=== PATIENT | female | born 1985 | race Caucasian/White ===

== ENCOUNTER 2016-08-12 13:40 | Inpatient (IN) | payer OTHER ==
[~2016-08-12] VITALS: Ht 161.3 cm; Wt 77.2 kg
[~2016-08-12 13:40] MED LIST: PRENAT PO
[2016-08-12 14:00] VITALS: BP 162/92; PULSE 96; RESP 20; Ht 161.3 cm; Wt 77.2 kg
[2016-08-12] MEDS ORDERED: AMPICILLIN 2 GM/NS (PMX) 100 ML IV ONE (14:30)
[2016-08-12] MEDS ORDERED: CARBOPROST 250 MCG INJ IM PRN (14:30)
[2016-08-12] MEDS ORDERED: IBUPROFEN 600 MG TAB PO PRN (14:30)
[2016-08-12] MEDS ORDERED: BUTORPHANOL 2 MG INJ IV PRN ×2 (14:30)
[2016-08-12] MEDS ORDERED: OXYTOCIN 30 UNITS/LR 500 ML IV PRN (14:30)
[2016-08-12] MEDS ORDERED: MISOPROSTOL 200 MCG TAB PR PRN (14:30)
[2016-08-12] MEDS ORDERED: NACL 0.9% 3 ML SYG IV SCH (14:30)
[2016-08-12] MEDS ORDERED: LIDOCAINE 1% (MPF) 30 ML INJ INJ PRN (14:30)
[2016-08-12] MEDS ORDERED: OXYTOCIN 30 UNITS/LR 500 ML IV SCH ×2 (14:30)
[2016-08-12] MEDS ORDERED: OXYCODONE/ACETAMINOPHEN (5/325) TAB PO PRN (14:30)
[2016-08-12] MEDS ORDERED: OXYCODONE/ASPIRIN (4.88/325) TAB PO PRN (14:30)
[2016-08-12] MEDS ORDERED: NA PHOSPHATE/BIPHOS 133 ML ENEMA PR ONE (14:30)
[2016-08-12] MEDS ORDERED: ACETAMINOPHEN/CODEINE #3 TAB PO PRN (14:30)
[2016-08-12 14:52] LABS: ADD SCAN DIFF NO
[2016-08-12 14:54] LABS: BASOPHILS % 0.4 % (0.0-2.0); EOSINOPHILS % 0.2 % (0.0-7.0); HEMATOCRIT 38.6 % (37.0-47.0); HEMOGLOBIN 12.5 g/dl (12.0-16.0); LYMPHOCYTES # 2.3 10^3/ul (0.8-2.9); LYMPHOCYTES % 22.7 % (15.0-51.0); MEAN CORPUSCULAR HEMOGLOBIN 24.7 pg (29.0-33.0); MEAN CORPUSCULAR HGB CONC 32.4 g/dl (32.0-37.0); MEAN CORPUSCULAR VOLUME 76.3 fl (82.0-101.0); MEAN PLATELET VOLUME 10.5 fl (7.4-10.4); MONOCYTE # 0.6 10^3/ul (0.3-0.9); MONOCYTES % 5.6 % (0.0-11.0); NEUTROPHILS % 70.6 % (39.0-77.0); PLATELET COUNT 267 10^3/UL (140-415); RED BLOOD COUNT 5.06 10^6/ul (4.20-5.40); RED CELL DISTRIBUTION WIDTH 19.1 % (11.5-14.5); WHITE BLOOD COUNT 9.9 10^3/ul (4.8-10.8)
[2016-08-12 15:06] LABS: INR 0.98
[2016-08-12 15:07] LABS: ALBUMIN 3.6 g/dl (3.3-4.9); PARTIAL THROMBOPLASTIN TIME 29.2 Sec (25.0-35.0)
[2016-08-12 15:08] LABS: POTASSIUM 3.4 mmol/L (3.5-5.1)
[2016-08-12 15:10] LABS: ALBUMIN/GLOBULIN RATIO 0.94; BILIRUBIN,INDIRECT 0.2 mg/dl (0-1.1); BILIRUBIN,TOTAL 0.2 mg/dl (0.2-1.3); CREATININE 0.45 mg/dl (0.44-1.00); TOTAL PROTEIN 7.4 g/dl (6.1-8.1)
[2016-08-12 15:11] LABS: ADD UMIC YES; CALCIUM 9.6 mg/dl (8.4-10.2); URINE BILIRUBIN (Dip) NEGATIVE (NEGATIVE); URINE BLOOD (Dip) NEGATIVE (NEGATIVE); URINE COLOR LT. YELLOW (YELLOW); URINE GLUCOSE (Dip) NEGATIVE (NEGATIVE); URINE KETONES (Dip) 40 (NEGATIVE); URINE LEUKOCYTE ESTERASE (Dip) TRACE (NEGATIVE); URINE NITRITE (Dip) NEGATIVE (NEGATIVE); URINE TOTAL PROTEIN (Dip) NEGATIVE (NEGATIVE); URINE UROBILINOGEN (Dip) 0.2 E.U./dL (0.1-1.0)
[2016-08-12 15:33] LABS: SQUAMOUS EPITHELIAL CELL,UR MODERATE; URINE RBCS 0-2 /HPF (0)
[2016-08-12 15:34] LABS: BACTERIA,URINE FEW
[2016-08-12 15:40] LABS: ALBUMIN 3.7 g/dl (3.3-4.9)
[2016-08-12 15:43] LABS: BILIRUBIN,INDIRECT 0.2 mg/dl (0-1.1); BILIRUBIN,TOTAL 0.2 mg/dl (0.2-1.3); TOTAL PROTEIN 7.5 g/dl (6.1-8.1)
[2016-08-12] MEDS: LACTATED RINGER'S 1,000 ML IV SCH ×2 (15:50→21:14)
--- NOTE | 2016-08-12 18:23 | HP ---
Date/Time of Note Date/Time of Note DATE: 08/12/16 TIME: 18:18 OB - History Hx of Present Free Text/Dictation sent in from clinic at 40 + weeks for F/U Last Menstrual Period: Nov 05, 2015 Estimated Due Date: Aug 11, 2016 : 3 Para: 2 Care: Limited Care Obstetrical Complications: Other (abnormal 2nd trimester screen ) Past Family/Social History * Past Medical, Surgical, Family and Obstetric Histories reviewed from chart. Blood Type: A+ OB Admission Exam Vital Signs Vital Signs Vital Signs Date Time Temp Pulse Resp B/P Pulse Ox O2 Delivery O2 Flow Rate FiO2 08/12/16 14:00 98.2 96 20 162/92 Room Air Physical Exam HEENT: WNL Heart: Rhythm Normal Lungs: Clear, Equal Abdomen: WNL Extremities: Normal Reflexes: Normal Cervical Dilatation: 5cm Effacement: 50% Station: -3 Membranes: Intact Contractions on Admission: 6-10 Minutes Apart Date/Time Contractions Began: ? Frequency of Contractions: ? Duration: ? Intensity: Mild Last 72 hours Lab Results CBC & BMP 08/12/16 14:15 Liver Function Test 08/12/16 14:15 Alanine Aminotransferase (ALT/SGPT) 26 Albumin 3.6 Alkaline Phosphatase 181 H Aspartate Amino Transf (AST/SGOT) 26 Direct Bilirubin 0.00 Total Protein 7.4 OB Assessment/Plan Reason for admission: induction of labor Other Assessment: post term Induction Method: per Pitocin Protocol MONIKA CAMPOS MD Aug 12, 2016 18:23
[2016-08-12] MEDS: AMPICILLIN 1 GM/NS (PMX) 50 ML IV SCH ×2 (19:28→22:39)
[2016-08-12] MEDS ORDERED: LACTATED RINGER'S 1,000 ML IV PRN (20:00)
[2016-08-13] MEDS: AMPICILLIN 1 GM/NS (PMX) 50 ML IV SCH (02:25)
[2016-08-13] MEDS: OXYTOCIN 30 UNITS/LR 500 ML IV SCH ×4 (03:47→07:47)
--- NOTE | 2016-08-13 03:53 | LDN ---
Date/Time of Note Date/Time of Note DATE: 08/13/16 TIME: 03:50 Delivery Summary uncomplicated of live female . shoulders delivered atraumatically, followed by body. No nuchal cord. No perineal lacerations; placenta delivered spontaneously. EBL 300mL Weeks of Gestation term Placenta Delivered: Spontaneously Meconium: none Episiotomy: No Anesthesia type: None Estimated blood loss: 300 Sponge & Needle done & correct: Yes All needle counts correct: Yes Any foreign bodies felt in the: No Problems: Mother & Baby Disposition Disposition Mom & Baby to Maternity; Good: Yes Baby to NICU: No JULIET ALCARAZ MD Aug 13, 2016 03:53
[2016-08-13] MEDS ORDERED: MISOPROSTOL 200 MCG TAB PR PRN (04:00)
[2016-08-13] MEDS ORDERED: ACETAMINOPHEN/CODEINE #3 TAB PO PRN ×2 (04:00)
[2016-08-13] MEDS ORDERED: CARBOPROST 250 MCG INJ IM PRN (04:00)
[2016-08-13] MEDS ORDERED: DIPHENHYDRAMINE 25 MG CAP PO PRN (04:00)
[2016-08-13] MEDS ORDERED: ZOLPIDEM 5 MG TAB PO PRN (04:00)
[2016-08-13] MEDS ORDERED: OXYTOCIN 30 UNITS/LR 500 ML IV PRN (04:00)
[2016-08-13] MEDS ORDERED: LANOLIN 7 GM TUBE TOP PRN (04:00)
[2016-08-13] MEDS: IBUPROFEN 600 MG TAB PO SCH ×4 (06:00→23:49)
[2016-08-13] MEDS: LACTATED RINGER'S 1,000 ML IV SCH ×2 (06:25→14:25)
[2016-08-13 06:45] VITALS: BP 160/72; PULSE 78; RESP 20
[2016-08-13 07:20] VITALS: BP 117/61; PULSE 87; RESP 20
[2016-08-13 08:00] VITALS: BP 130/72; RESP 18
[2016-08-13] MEDS: SENNA/DOCUSATE NA (8.6MG/50MG) TAB PO SCH ×2 (09:09→21:15)
[2016-08-13 10:07] LABS: ADD SCAN DIFF NO
[2016-08-13 10:14] LABS: BASOPHILS % 0.3 % (0.0-2.0); EOSINOPHILS % 0.1 % (0.0-7.0); HEMATOCRIT 34.2 % (37.0-47.0); HEMOGLOBIN 11.3 g/dl (12.0-16.0); LYMPHOCYTES # 2.2 10^3/ul (0.8-2.9); LYMPHOCYTES % 16.5 % (15.0-51.0); MEAN CORPUSCULAR HEMOGLOBIN 25.7 pg (29.0-33.0); MEAN CORPUSCULAR VOLUME 77.9 fl (82.0-101.0); MEAN PLATELET VOLUME 10.3 fl (7.4-10.4); MONOCYTE # 0.6 10^3/ul (0.3-0.9); MONOCYTES % 4.3 % (0.0-11.0); NEUTROPHIL # 10.4 10^3/ul (1.6-7.5); NEUTROPHILS % 78.3 % (39.0-77.0); PLATELET COUNT 241 10^3/UL (140-415); RED BLOOD COUNT 4.39 10^6/ul (4.20-5.40); RED CELL DISTRIBUTION WIDTH 18.3 % (11.5-14.5); WHITE BLOOD COUNT 13.3 10^3/ul (4.8-10.8)
[2016-08-13 12:00] VITALS: BP 108/57; PULSE 99
[2016-08-13 16:00] VITALS: BP 121/60; PULSE 94; RESP 18
[2016-08-13 19:30] VITALS: BP 129/67; PULSE 79; RESP 18
[2016-08-14 03:56] VITALS: BP 115/58; PULSE 75; RESP 18
[2016-08-14] MEDS: IBUPROFEN 600 MG TAB PO SCH ×3 (05:44→17:55)
[2016-08-14 08:06] LABS: ADD SCAN DIFF NO
[2016-08-14 08:09] LABS: BASOPHILS % 0.6 % (0.0-2.0); EOSINOPHILS # 0.1 10^3/ul (0.0-0.5); HEMATOCRIT 29.3 % (37.0-47.0); HEMOGLOBIN 9.2 g/dl (12.0-16.0); LYMPHOCYTES # 2.6 10^3/ul (0.8-2.9); LYMPHOCYTES % 40.2 % (15.0-51.0); MEAN CORPUSCULAR HEMOGLOBIN 24.6 pg (29.0-33.0); MEAN CORPUSCULAR HGB CONC 31.4 g/dl (32.0-37.0); MEAN CORPUSCULAR VOLUME 78.3 fl (82.0-101.0); MEAN PLATELET VOLUME 10.5 fl (7.4-10.4); MONOCYTE # 0.5 10^3/ul (0.3-0.9); MONOCYTES % 7.6 % (0.0-11.0); NEUTROPHIL # 3.2 10^3/ul (1.6-7.5); NEUTROPHILS % 49.1 % (39.0-77.0); PLATELET COUNT 201 10^3/UL (140-415); RED BLOOD COUNT 3.74 10^6/ul (4.20-5.40); RED CELL DISTRIBUTION WIDTH 18.7 % (11.5-14.5); WHITE BLOOD COUNT 6.5 10^3/ul (4.8-10.8)
[2016-08-14 08:20] VITALS: BP 127/71; PULSE 73; RESP 18
[2016-08-14] MEDS: SENNA/DOCUSATE NA (8.6MG/50MG) TAB PO SCH ×2 (09:58→21:57)
--- NOTE | 2016-08-14 13:29 | DS ---
Date/Time of Note Date/Time of Note home next day DATE: 08/14/16 TIME: 13:28 Obstetrical Discharge Record Final Diagnosis Final Diagnosis: Term delivered Other Final Diagnosis S/P vaginal delivery Vaginal Delivery Obstetrical Delivery: Spontaneous Complications Augmentation: Yes Condition on Discharge Physical Assessment Last Vitals: see nurses notes Voiding: Yes Bowel Movement: Yes Breast: Soft, non-tender, Filling Fundus: Firm Abdomen and Incision: soft bs + Episiotomy: NA Calf Tenderness: No Patient Condition: Good MONIKA CAMPOS MD Aug 14, 2016 13:29
--- NOTE | 2016-08-14 13:31 | PD.PPDC ---
[employer] OF [employer]PER[employer] HOME HEALTH Discharge Instruction Provider Information Physician Information 31 y/o female had vaginal delivery Diagnosis Final Diagnosis: S/P vaginal delivery Condition Patient Condition: Good Diet Diet: Resume Regular Diet Activity/Restrictions Activity: Normal Activity May Shower Restrictions: Nothing in the Vagina Return to Work or School: September 27, 2016 Follow-up Follow-up with Physician: 4, Week/Weeks (in clinic ) Return to clinic for OB Instructions: Breast Tenderness Depression MONIKA CAMPOS MD Aug 14, 2016 13:30
[2016-08-14] MEDS ORDERED: IBUP-1542 PO (13:32)
[2016-08-14] MEDS ORDERED: PRENAT PO (13:32)
[2016-08-14 16:00] VITALS: BP 115/60; PULSE 78; RESP 19
[2016-08-14 20:00] VITALS: BP 142/84; PULSE 86; RESP 18
[2016-08-15 04:15] VITALS: BP 140/79; PULSE 84
[2016-08-15] MEDS: IBUPROFEN 600 MG TAB PO SCH ×3 (06:08→11:26)
[2016-08-15 08:35] VITALS: BP 155/84; PULSE 80; RESP 18
[2016-08-15] MEDS: SENNA/DOCUSATE NA (8.6MG/50MG) TAB PO SCH (08:35)
[2016-08-15 09:15] VITALS: BP_SYST 153; BP_SYST 161; BP_DIAS 86; BP_DIAS 94; PULSE 80; PULSE 81; RESP 18
[2016-08-15 10:30] VITALS: BP 171/84; PULSE 81; RESP 19
[2016-08-15] MEDS ORDERED: LABETALOL 200 MG TAB PO SCH (11:30)
[2016-08-15] MEDS ORDERED: LAB200 PO (12:31)
[2016-08-15 14:20] VITALS: BP 134/84; PULSE 80
== END 2016-08-15 15:50 | disposition home or self-care (01) | DRG 775 ==
LOC: L-D 13:40 → PP1 08-13 06:07
PROVIDERS: ADMIT Obstetrics & Gynecology; ATTEND Obstetrics & Gynecology
PROC: 10E0XZZ Delivery of Products of Conception, External Approach (ICD-10-PCS; principal; 2016-08-13)
DX: O48.0 Post-term pregnancy (principal); Z37.0 Single live birth; Z3A.40 40 weeks gestation of pregnancy
CPT/HCPCS: 80053; 80076; 81001; 81003; 82962; 84560; 85025; 85610; 85730; 86592; 86850; 86900; 86901; J0290; J2590; J7120